=== PATIENT | female | born 1970 | race Caucasian/White ===

== ENCOUNTER 2021-03-18 08:10 | Day surgery (SDC) | payer BC, SELFPAY ==
[~2021-03-18] VITALS: Ht 172.7 cm; Wt 92.1 kg
[2021-03-18 08:35] LABS: HCG,QUAL RESULT NEGATIVE (NEGATIVE)
[2021-03-18] MEDS ORDERED: SIMETHICONE 40 MG/0.6 ML ML ONE (08:42)
[2021-03-18] MEDS: fentaNYL CITRATE/PF 100 MCG/2 ML AMP ONE ×3 (08:51→08:56)
[2021-03-18] MEDS: MIDAZOLAM HCL 5 MG/5 ML VIAL ONE ×4 (08:51→09:08)
[2021-03-18 09:15] VITALS: BP_SYST 111
== END 2021-03-18 09:50 | disposition home or self-care (01) ==
LOC: SDS 08:10 → SMU 08:11 → SDS 09:50
PROVIDERS: ATTEND Internal Medicine
DX: Z12.11 Encounter for screening for malignant neoplasm of colon (principal); K63.5 Polyp of colon; K64.9 Unspecified hemorrhoids; K86.2 Cyst of pancreas; Z79.899 Other long term (current) drug therapy; Z20.822 Contact with and (suspected) exposure to COVID-19
CPT/HCPCS: 45380; 84703; 88305; 99152; G0378; J2250; J3010; U0003